=== PATIENT | male | born 1945 ===

== ENCOUNTER 2023-04-16 06:28 | Day surgery (SDC) | payer MEDICARE, BC, SELFPAY ==
[2023-04-16 06:59] VITALS: BP 143/61; PULSE 58; RESP 18; TEMP 36.5; O2SAT 97
[2023-04-16] MEDS: Tropicam./Phenyleph. (1/2.5%) 5 ML BTL ×3 (06:59→07:13)
--- NOTE | 2023-04-16 07:16 | ANES.PREOP_ITS ---
General Info Date of Service Date Performed: 04/16/23 Height: 5 ft 6 in Weight: 98.883 kg Body Mass Index (BMI): 35.2 Surgical Procedure: Operation Date: 04/16/23 07:40 Proposed Procedure Side Surgeon p Cataract Extraction with IOL Implant Left Deshawn Edwards MD Meds Allergies and Home Medications Allergies Allergy/AdvReac Type Severity Reaction Status Date / Time naproxen [From Aleve] Allergy Unknown Verified 04/16/23 06:54 Home Medication Medication Instructions Recorded allopurinol 100 mg tablet 100 mg PO DAILY 04/15/23 amlodipine 10 mg tablet 10 mg PO DAILY 04/15/23 cyanocobalamin (vitamin B-12) 1,000 mcg PO DAILY 04/15/23 1,000 mcg capsule diphenhydramine HCl 25 mg capsule 25 mg PO Q8H PRN 04/15/23 (Benadryl) metoprolol tartrate 25 mg tablet 25 mg PO Q12H 04/15/23 omega-3 fatty acids-fish oil 340 1 cap PO BID 04/15/23 mg-1,000 mg capsule paroxetine HCl 10 mg tablet 10 mg PO DAILY 04/15/23 PFSH Active Problems Active Problems: Problem Status Onset Code Cortical age-related cataract, left eye H25.012 Nuclear age-related cataract, left eye H25.12 Medical History Medical History CKD (chronic kidney disease), stage III Concussion GERD (gastroesophageal reflux disease) Gout History of rhabdomyolysis HLD (hyperlipidemia) ORUTSARARMIUT (hard of hearing) Hx of asbestos exposure Hypertension Illiterate Knee injury Onychomycosis Surgical History Surgical History H/O vasectomy History of appendectomy History of arthroscopic knee surgery History of cholecystectomy History of colonoscopy History of shoulder surgery Tobacco Smoking/Tobacco Use Status: Former Tobacco Use Alcohol Alcohol Intake: current Alcohol intake frequency: holidays/special occasions only Substance Use Substance use: Never Substance use type: does not use Vital Signs and Lab Results Vital Signs Most Recent Vital Signs in EMR: Most Recent Vital Signs Temp Pulse Resp BP Pulse Ox 36.5 C 58 L 18 143/61 H 97 04/16/23 06:59 04/16/23 06:59 04/16/23 06:59 04/16/23 06:59 04/16/23 06:59 Lab Results Blood Type / Crossmatch: No Data to Display Complete Blood Count: No Data to Display Complete Metabolic Panel: No Data to Display Liver Function Panel: No Data to Display Coagulation Panel: No Data to Display Cardiac Panel: No Data to Display Arterial Blood Gas: No Data to Display Venous Blood Gas: No Data to Display Pancreas Panel: No Data to Display Thyroid Panel: No Data to Display Infectious Disease: No Data to Display Blood Cultures: No Data to Display Toxicology Panel: No Data to Display Anesthesia Assessment and Plan Anesthesia History Personal History: No History of Anesthesia Complications Family History: No Family History of Anesthesia Complications Exercise Tolerance Exercise Tolerance: Metabolic Equivalents>4 Pertinent Negatives Pertinent Negatives: No Symptoms of GERD and No Major Pulmonary Symptoms or Complaints Cardiac & Pulmonary Exam Cardiac Exam: Normal S1/S2 Heart Sounds Pulmonary Exam: Clear Bilateral Breath Sounds Implantable Cardiac Device Does patient have a Pacemaker or an ICD?: No Airway Exam Known Difficult Airway: No Mallampati Class: 3 Mouth Opening: Normal (> 3cm) Thyromental Distance: Greater than 3 cm Neck Range of Motion: Full ROM Neck Circumference: Thick Teeth Condition: Generalized Poor Dentition ASA Classification ASA Score: ASA 2 Emergency Case?: No NPO Status NPO Status: NPO Clears >2 hours, Solids >8 hours Anesthesia Plan Resuscitation Status: Full Code Anesthesia Technique: MAC Anesthesia Airway Planned: Natural Airway Monitors Used: Standard Monitors
[2023-04-16 07:18] VITALS: BMI 35.2
[2023-04-16] MEDS: Lidocaine 1% Pres-Free 5 ML VIAL (07:43)
[2023-04-16] MEDS: Phenylephrine/Lidocaine (15/10) MG/ML 1 ML VIAL (07:43)
[2023-04-16] MEDS: Povidone-Iodine Ophth 30 ML BTL (07:44)
[2023-04-16] MEDS: Duovisc Viscoelastic System EACH 1 EACH (07:45)
[2023-04-16] MEDS: Tetracaine 0.5% 4 ML BTL (07:46)
[2023-04-16 08:05] VITALS: BP 119/54; PULSE 54; RESP 16; TEMP 36.2; O2SAT 98
--- NOTE | 2023-04-16 08:05 | W.PM.DSUDISC ---
Date of service: 04/16/23 Time of Service: 08:06 Discharge Plan Disposition Patient Disposition: Home Discharge Details Attending Provider: Deshawn Edwards Primary Care Provider: Winsome Spencer Home Meds and New Rx's Prescriptions: No Action paroxetine HCl 10 mg Tablet 10 mg PO DAILY allopurinol 100 mg Tablet 100 mg PO DAILY diphenhydramine HCl [Benadryl] 25 mg Capsule 25 mg PO Q8H PRN metoprolol tartrate 25 mg Tablet 25 mg PO Q12H Fish Oil 340-1,000 mg Capsule 1 cap PO BID cyanocobalamin (vitamin B-12) 1,000 mcg Capsule 1,000 mcg PO DAILY amlodipine 10 mg Tablet 10 mg PO DAILY Discharge Instructions Stand Alone Forms: Post-op Topical Cataract, Deangelo San ([facility]) Discharge Orders Discharge Orders: Discharge Order (Routine); Ordered 04/16/23 Ordered By: Deshawn Edwards DS: Diagnosis Discharge Diagnosis (1) Cortical age-related cataract, left eye: Status: Resolved (2) Nuclear age-related cataract, left eye: Status: Resolved
--- NOTE | 2023-04-16 08:06 | W.PM.OP ---
Date of service: 04/16/23 Time of Service: 08:06 Operative Note Operative Note DATE OF PROCEDURE: 04/16/23 PRE-OP DIAGNOSIS: Nuclear/cortical cataract, left eye poorly dilating pupil, left eye POST-OP DIAGNOSIS: same PROCEDURE: Cataract extraction by phacoemulsification with intraocular lens implantation, left eye, with pupillary expansion device SURGEON: Deshawn Edwards ANESTHESIA TYPE: Local By Surgeon and MAC Refer to Anesthesia Record ESTIMATED BLOOD LOSS: 0 PATHOLOGY: none sent COMPLICATIONS: None Patient was transported to: same day Patient's condition: stable Implants: [employer] / [employer] Tecnis Eyhance DIB00 Indications: Progressive decreased vision, left eye Poorly dilating pupil, left eye. Procedure Description: CATARACT SURGERY OPERATIVE REPORT PREOPERATIVE DIAGNOSIS: 1. Nuclear/cortical cataract, left eye 2. Poorly dilating pupil, left eye POSTOPERATIVE DIAGNOSIS: Same OPERATION: 1. Cataract extraction using phacoemulsification with posterior chamber intraocular lens implant, left eye. 2. Pupillary dilation and iris stabilization using Malyugin Ring IOL; IOL Computer Numerical Control Programmer/Model: [employer] Dw[employer] / [employer]HELA Tecnis Eyhance DIB00 IOL Power: + 20.0 diopters IOL Serial Number: [id number] Optic Diameter: 6.0 mm Haptic/Overall Diameter: 13.00 mm PHACO INFO: Naveen Kitengaurion Vision System with OZil and Active [employer]uidics Cumulative Dispersed Energy (CDE): 7.48 seconds SURGEON: Deshawn Edwards MD, ARVIND ANESTHESIA: Monitored Anesthesia Care (MAC), with local sub-tenon's anesthetic infiltration COMPLICATIONS: None SPECIMENS: None INDICATIONS FOR PROCEDURE: The patient is a 77-year-old gentleman with history of diminished visual acuity in his left eye. He is noted to have a significant nuclear/cortical cataract in the left eye. He also has a very poorly dilating pupil. The option of cataract surgery was offered to the patient and he wished to proceed. See office notes for detailed information. PROCEDURE: The correct surgical eye was identified and marked as the left eye and the pupil was dilated in the preoperative area using mydriatics, cycloplegics, and NSAIDS (except in aspirin allergic patients). The dilated pupil size was 4.0 mm. Oral sedation was administered in the form of an Imprimis MKO Melt (midazolam 3mg/ketamine 25mg/ondansetron 2mg). The patient was brought to the operating room where cardiopulmonary monitoring was instituted and surgical time-out was performed, confirming the correct operative eye and IOL power. Topical anesthesia was administered and ophthalmic povidone-iodine 5% was instilled into the conjunctival fornices. Lidocaine gel was applied to the cornea and the giancarlo-ocular area was prepped with Betadine 10% solution and draped in the usual sterile fashion for intraocular surgery, including an aperture drape. A Tegaderm transparent film dressing was cut in half and used to cover the lashes and lid margins. Care was taken to sequester the lashes and lid margins under the Tegaderm dressing. A lid speculum was placed between the lids of the operative eye and the Yadira-Joseline operating microscope was maneuvered into position. Ruth Ann scissors were then used to make a conjunctival buttonhole approximately 6mm posterior to the limbus in the inferonasal quadrant. Blunt dissection was carried out to expose bare sclera, and a blunt-tipped sub-tenon?s anesthesia cannula was introduced and passed posteriorly along the globe where non-preserved plain lidocaine was injected into posterior sub-Tenon?s space. A sideport knife was used to make a paracentesis port superiorly/superiortemporally. Intraocular phenylephrine/lidocaine was injected into the anterior chamber. No additional pupillary dilation resulted. The anterior chamber was then filled with viscoelastic. A keratome knife was used to create a half-thickness groove at the limbus and then to construct a three-plane near-clear corneal tunnel extending 2.0mm into clear cornea at the temporal position. A 6.25 mm Malyugin Ring was then inserted into the pupillary space and engaged with the Kuglen hook. A flap was raised on the anterior capsule and capsulorhexis forceps were used to complete a continuous curvilinear capsulorhexis of 5.0 mm. Balanced salt solution was then used to perform cortical cleaving hydrodissection and nuclear hydrodelineation until the lens could be freely rotated within the capsular bag. The lens nucleus was then disassembled and removed within the capsular bag and iris plane using phacoemulsification. Residual cortical material was removed using the 45-degree angled silicone I/A tip with 0.3mm port. The posterior capsule was carefully polished to remove as much residual lens epithelial cells as safely possible. The capsular bag was then inflated and the anterior chamber deepened with viscoelastic. The lens implant described above was inserted into the capsular bag using the Dw[employer] and Dwain Simplicity Injector. A Kuglen hook was used to dial the IOL into position. The Malyugin Ring was removed in the reverse order of its insertion. Residual viscoelastic was then removed first from posterior to the IOL, then from the anterior chamber using the I/A handpiece. The lens implant was noted to center nicely within the capsular bag. The incisions were stromally hydrated, and the anterior chamber was reformed using BSS. Then 0.5cc of moxifloxacin 1.0mg/ml were injected into the capsular bag and anterior chamber. The incisions were checked with a Weck spear and found to be secure. Several drops of ophthalmic povidone-iodine 5% were then applied to the eye followed by two drops of Imprimis combination prednisolone/moxifloxacin/nepafenac solution. The drapes were removed and a clear plastic protective eye shield was placed over the eye. The patient was then returned to [facility] Day Surgery in stable condition.
--- NOTE | 2023-04-16 08:24 | W.ANESPOSTOP ---
Postoperative Evaluation Date, Time and Location Date Performed: 04/16/23 Time Performed: 08:09 Patient Location: Day Surgery Unit Vital Signs Most Recent Imported Vital Signs: Most Recent Vital Signs Temp Pulse Resp BP Pulse Ox 36.2 C L 54 L 16 119/54 L 98 04/16/23 08:05 04/16/23 08:05 04/16/23 08:05 04/16/23 08:05 04/16/23 08:05 Pain Score Most Recent Pain Score: Most Recent Pain Score Pain Level 0 04/16/23 08:05 Assessment Mental Status: Awake (Alert & Oriented to Patient Baseline) Airway and Respiratory Function: Patent airway with normal (patient baseline) respiratory exam Cardiovascular Function: Hemodynamically Stable Hydration Status: Adequately Hydrated Nausea & Vomiting: No Nausea or Vomiting Pain: Pt. Denies Any Pain Peripheral Nerve Block: Patient did not receive a nerve block
[2023-04-16 08:30] VITALS: BP 108/57; PULSE 52; RESP 18; TEMP 36.3; O2SAT 96
== END 2023-04-16 08:39 | disposition home or self-care (01) ==
PROVIDERS: PCP Nurse Practitioner Family; Visit Provider Ophthalmology
PROC: (CPT 66982; principal; 2023-04-16 07:30)
DX: H25.012 Cortical age-related cataract, left eye (principal); H25.12 Age-related nuclear cataract, left eye; H21.562 Pupillary abnormality, left eye; I12.9 Hypertensive chronic kidney disease with stage 1 through stage 4 chronic kidney disease, or unspecified chronic kidney disease; N18.30 Chronic kidney disease, stage 3 unspecified
CPT/HCPCS: 66982; V2632